=== PATIENT | female | born 1995 | race Caucasian/White ===

== ENCOUNTER 2017-04-27 08:42 | Emergency (ER) | payer OTHER ==
[2017-04-27] MEDS: ACETAMINOPHEN 325 MG TAB PO (10:49)
[2017-04-27] MEDS: SOD CHLORIDE 0.9% 1,000 ML IV (10:49)
[2017-04-27 11:07] LABS: ADD MAN DIFF? NO
[2017-04-27 11:10] LABS: BASOPHIL # 0.1 10^3/ul (0.0-0.1); BASOPHILS % 0.3 % (0.0-2.0); HEMATOCRIT 39.2 % (37.0-47.0); LYMPHOCYTES # 1.3 10^3/ul (0.8-2.9); LYMPHOCYTES % 7.8 % (18.0-55.0); MEAN CORPUSCULAR HEMOGLOBIN 29.4 pg (29.0-33.0); MEAN CORPUSCULAR HGB CONC 33.2 g/dl (32.0-37.0); MEAN CORPUSCULAR VOLUME 88.7 fl (72.0-104.0); MEAN PLATELET VOLUME 8.7 fl (7.4-10.4); MONOCYTE # 1.3 10^3/ul (0.3-0.9); MONOCYTES % 7.9 % (0.0-13.0); NEUTROPHIL # 14.1 10^3/ul (1.6-7.5); NEUTROPHILS % 83.7 % (30.0-74.0); PLATELET COUNT 359 10^3/UL (140-415); RED BLOOD COUNT 4.42 10^6/ul (4.20-5.40); RED CELL DISTRIBUTION WIDTH 13.8 % (11.5-14.5)
[2017-04-27 11:10] LABS: WHITE BLOOD COUNT 16.8 10^3/ul (4.8-10.8)
[2017-04-27 11:41] LABS: ALANINE AMINOTRANSFERASE 23 IU/L (13-69); ALBUMIN 4.6 g/dl (3.3-4.9); ALBUMIN/GLOBULIN RATIO 1.15; ALKALINE PHOSPHATASE 96 IU/L (42-121); ANION GAP 16 (8-16); ASPARTATE AMINO TRANSFERASE 23 IU/L (15-46); BILIRUBIN,INDIRECT 0.1 mg/dl (0-1.1); BILIRUBIN,TOTAL 0.1 mg/dl (0.2-1.3); BLOOD UREA NITROGEN 10 mg/dl (7-20); CALCIUM 9.6 mg/dl (8.4-10.2); CARBON DIOXIDE 24 mmol/L (21-31); CHLORIDE 102 mmol/L (97-110); CREATININE 0.76 mg/dl (0.44-1.00); GLUCOSE 96 mg/dl (70-220); LIPASE 43 U/L (23-300); POTASSIUM 4.3 mmol/L (3.5-5.1); SODIUM 138 mmol/L (135-144); TOTAL PROTEIN 8.6 g/dl (6.1-8.1)
[2017-04-27 11:43] LABS: MONOTEST Negative (NEG)
[2017-04-27 13:43] LABS: ADD UMIC YES; UR ASCORBIC ACID 20 mg/dL (NEGATIVE); UR BACTERIA FEW /HPF (NONE SEEN); UR BILIRUBIN (Dip) NEGATIVE (NEGATIVE); UR BLOOD (Dip) NEGATIVE (NEGATIVE); UR CLARITY SLIGHTLY CLOUDY (CLEAR); UR COLOR YELLOW (YELLOW); UR GLUCOSE (Dip) NEGATIVE (NEGATIVE); UR KETONES (Dip) 2+ mg/dL (NEGATIVE); UR LEUKOCYTE ESTERASE (Dip) 1+ Leu/ul (NEGATIVE); UR MUCUS FEW /HPF (NONE SEEN); UR NITRITE (Dip) NEGATIVE (NEGATIVE); UR RBC 1 /HPF (0-5); UR SPECIFIC GRAVITY (Dip) 1.018 (1.003-1.030); UR SQUAMOUS EPITHELIAL CELL FEW /HPF (FEW); UR TOTAL PROTEIN (Dip) NEGATIVE (NEGATIVE); UR UROBILINOGEN (Dip) NEGATIVE (NEGATIVE); UR WBC 6 /HPF (0-5)
== END 2017-04-27 14:41 | disposition home or self-care (01) ==
LOC: FTE 08:42
DX: R05 Cough (principal); R50.9 Fever, unspecified; R52 Pain, unspecified
CPT/HCPCS: 36415; 71045; 80053; 81001; 83690; 85025; 86308; 87400; 87880; 99284-25

== ENCOUNTER 2017-04-29 08:31 | Emergency (ER) | payer OTHER | END 2017-04-29 09:30 | disposition home or self-care (01) | LOC: FTE 08:31 | DX: K13.79 Other lesions of oral mucosa (principal) | CPT/HCPCS: 99282 ==

== ENCOUNTER 2017-12-11 07:08 | Emergency (ER) | payer OTHER ==
[2017-12-11] MEDS: ONDANSETRON (ODT) 4 MG TAB ODT (07:32)
[2017-12-11] MEDS: ACETAMINOPHEN 325 MG TAB PO (07:32)
[2017-12-11 07:36] LABS: URINE BLOOD (Dip) POC 3+ (NEGATIVE); URINE GLUCOSE (Dip) POC Negative (NEGATIVE); URINE KETONES (Dip) POC Trace (NEGATIVE); URINE LEUKOCYTE EST (Dip) POC Negative (NEGATIVE); URINE NITRITE (Dip) POC Negative (NEGATIVE); URINE TOTAL PROTEIN POC 1+ (NEGATIVE)
== END 2017-12-11 07:56 | disposition home or self-care (01) ==
LOC: FTE 07:08
DX: N94.6 Dysmenorrhea, unspecified (principal); R10.2 Pelvic and perineal pain
CPT/HCPCS: 81003; 81025; 99283

== ENCOUNTER 2018-02-01 17:50 | Emergency (ER) | payer OTHER | END 2018-02-01 21:29 | disposition home or self-care (01) | LOC: FTE 17:50 | DX: N64.4 Mastodynia (principal) | CPT/HCPCS: 76642; 99284-25 ==